=== PATIENT | male | born 1935 | race Caucasian/White ===

== ENCOUNTER 2016-12-31 11:40 | Inpatient (IN) | payer MEDICARE ==
[~2016-12-31] VITALS: Ht 175.3 cm; Wt 102.0 kg
--- NOTE | ~2016-12-31 | ECHO ---
Transthoracic Echocardiography Report (TTE) Demographics Patient Name ROD GIFFORD Date of Study 12/31/2016 Patient Number [id number] Visit Number [id number] Date of 1935 Room Number G6204 Gender Male Number Age 81 year(s) Referring Cocoaudrey Jiménez Fabiana Chicken Boner Jhony GERARD, Physician MD PERKINS Silva Physician Interpreting Dunia Tafoya Jewel Cupping Machine Operator Physician Supervising Ordering Dunia Tafoya MD/MLP Physician Nurse Stress Bus Inspector Conclusions Contractility Score Summary Hypokinesis of the infero-septal, the Apical septal and the Apical cap segments. Summary Technically difficult exam due to patient being intubated and having uncontrollable muscle jerking. 5 ml of Definity contrast was administered. The estimated left ventricular ejection fraction is 30%.Mild concentric left ventricular hypertrophy.Anterior wall is thinned and akinetic.Normal internal dimension. There is mild aortic regurgitation by color Doppler. MAC. Mild aortic sclerosis. Trivial MR,TR and MO. Procedure Type of Study TTE procedure:2D Echocardiogram, M-Mode, Doppler , Color Doppler, Contrast study. Procedure Date Date: 12/31/2016 Start: 07:52 PM Study Location: Inpatient Portable Technical Quality: Limited visualization Indications:Cardiac arrest. Appropriate Use Criteria: 9 Patient Status: STAT HR: 96 bpm BP: 97/64 mmHg Allergies - No known allergies. M-Mode/2D Measurements Cardiac Output: 3.78 l/min AO Root Dimension: 2.2 cm LA Dimension: 3 cm LA volume: 26 ml LVOT: 1.9 cm LVOT VTI: 13.9 cm LV Stroke volume: 39.39 ml Doppler Measurements AV Peak Velocity: 1.11 m/s MV Peak E-Wave: 0.97 m/s AV Peak Gradient: 4.93 mmHg MV Peak A-Wave: 0.47 m/s AV Mean Gradient: 4 mmHg MV E/A Ratio: 2.04 LVOT Peak Velocity: 0.68 m/s MV P1/2t: 56 msec PV Peak Velocity: 0.79 m/s PV Peak Gradient: 2.46 mmHg Findings Left Ventricle Mild concentric left ventricular hypertrophy.Anterior wall is thinned and akinetic.LVEF:30%.Normal LV internal dimension. Right Ventricle Right ventricle not well visualized. Left Atrium Normal left atrial size. Right Atrium Normal right atrial size. Mitral Valve Mild mitral annular calcification. Trivial mitral regurgitation by color Doppler. Aortic Valve The aortic valve is mildly sclerotic. There is mild aortic regurgitation by color Doppler. Tricuspid Valve Trivial tricuspid regurgitation by color Doppler. Pulmonic Valve Trivial pulmonic valve regurgitation by color Doppler. Pericardial Effusion No evidence of pericardial effusion. Pleural Effusion No evidence of pleural effusion. Contractility Score LV regional wall motion:(0-Non visualized 1-Normal 2-Hypokinesis 3-Akinesis 4-Dyskinesis 5-Aneurysm) Signature dtt: Lottie Duque dtd: 12/31/161951 Physician Self Edit
--- NOTE | ~2016-12-31 | DS ---
PATIENT'S NAME: ROD GIFFORD [facility] AGE: 81 Y [address] ROOM: [place] [address] LOCATION: CU ADMIT DATE: 12/31/2016 Discharge Summary DISCHARGE DATE: 01/01/2017 FAMILY PHYSICIAN: Tino Russo MD ATTENDING PHYSICIAN: Lottie Duque DISCHARGE DIAGNOSES: 1. The patient had collapsed and was resuscitated and transferred over by air ambulance from [place], I think. He was taken to the emergency room, and primary percutaneous coronary intervention of his circumflex system was done. Reason for collapse was ventricular fibrillation. 2. History of hypertension. 3. Type 2 diabetes. 4. Elevated lipids. 5. History of myocardial infarction 30 years ago. 6. Coronary artery bypass grafting. 7. Automatic implantable cardioverter-defibrillator placement. COURSE IN THE HOSPITAL: The patient was intubated and was taken directly to the collaborative teacher and primary PCI performed. The procedure was successful, and the patient was transferred back to the intensive care unit where he was maintained overnight. The patient's family, for a multiplicity of reasons including the patient's wishes, decided to withdraw the next morning, and all his ventilatory supports were withdrawn, and the patient the next morning on January 01. MD LILO BARROS/andrey /[id number] d: 01/10/17 1846 t: 01/22/17 1605, DISCHARGE SUMMARY
--- NOTE | ~2016-12-31 | CON ---
PATIENT'S NAME: ROD GIFFORD [facility] AGE: 81 Y [address] ROOM: G6204 [place], [place] [address] LOCATION: GICU ADMIT DATE: 12/31/2016 Consultation DISCHARGE DATE: FAMILY PHYSICIAN: Tino Russo MD ATTENDING PHYSICIAN: Lottie Duque HISTORY OF PRESENT ILLNESS: Mr. Gifford is a 81-year-old male patient who was at accident site of his grandson where he suddenly collapsed in front of his granddaughter and his son. CPR was immediately started. It appears as if it took about 20 minutes for the ambulance to get there and they continued the CPR and was taken to the [place] [facility]. He received three IV doses of epinephrine and his ICD fired a few times and eventually he went into regular sinus rhythm. His blood pressure was 90 systolic and he was air lifted to [place] at that time. When he got here, he was intubated and was on the ventilator. He had a fluid running intravenously and epinephrine to support his blood pressure. The patient was directly taken to the environmental laboratory technician and angiogram was performed, followed by intervention, and intra-aortic balloon pump before getting him started with cooling. The patient apparently has had an SC almost 30 years ago. It affected the bottom of his heart and had collateral circulation to that area. About 20 years back, he had bypass surgery x2. This is from the mostly. Lately, he has been short of breath, weak, and fatigued all the time. Has not had much of chest pains. He has been in functional class 3-4. He is not on any oxygen at home that I know of at this time. He does have a history of congestive heart failure. He had had syncopal spells and had "ablation" done in the [facility]. After that, he underwent AICD placement. There was no significant change noted after the AICD placement according to the family. He has however not been passing out, even though he comes close to passing out anymore. There is no history of ankle swelling. He does have a history of AFib, but has not been on Coumadin from what I can see. The patient has history of hypertension, type 2 diabetes, elevated cholesterol. He is not a smoker and there is no family history of premature coronary artery disease. MEDICATIONS: His list of medications currently are unknown. ALLERGIES: CURRENTLY UNKNOWN. PAST MEDICAL HISTORY: He has had two shoulders replaced and knee surgery. He had a tonsillectomy done as a child, but otherwise essentially mostly cardiac problems. PATIENT'S NAME: ROD GIFFORD [facility] AGE: 81 Y [address] ROOM: [place] [address] LOCATION: [facility] ADMIT DATE: 12/31/2016 Consultation DISCHARGE DATE: FAMILY PHYSICIAN: Tino Russo MD ATTENDING PHYSICIAN: Lottie Duque SOCIAL HISTORY: He is . He does not abuse alcohol. His appetite and weight have been stable. FAMILY HISTORY: No premature coronary artery disease. REVIEW OF SYSTEMS: 1. Never had TIA, seizures, or CVA. 2. There is no history of bleeding complications like hematemesis, hematochezia, melena, hematuria, or peptic ulcer disease. PHYSICAL EXAMINATION: GENERAL: The patient is sedated and he is intubated. LUNGS AND HEART: He appears to have bilaterally good breath sounds and heart sounds are distant. ABDOMEN: Soft. EXTREMITIES: Reveal no edema. CENTRAL NERVOUS SYSTEM: Not evaluated because of his sedation and muscle relaxation. ASSESSMENT: Sudden cardiac in the field. RECOMMENDATIONS: Proceed with PCI, followed by intra-aortic balloon pump for blood pressure support and sent him to the ICU for cooling protocol. MD LILO BARROS/andrey /[id number] d: 12/31/16 1507 t: 01/10/17 1234, CONSULTATION REPORT
--- NOTE | ~2016-12-31 | CATH ---
Cardiac Diagnostic + PCI Report Demographics Patient Name ИРИНА VELASCO Gender Male Date of 1935 Age 81 year(s) Patient Number [id number] Date of Study 12/31/2016 Visit Number [id number] Room Number G6[address] [place] [id number] Ht 175.26 cm Wt 101.7 kg Referring Dunia Primary Physician Physician Lottie BRADSHAW Performing Dunia Secondary Physician Physician Lottie BRADSHAW Diagnostic Dunia Assisting Physician Physician Lottie BRADSHAW Interventional Dunia Physician School Program Director Physician Lottie BRADSHAW Findings and Conclusions Diagnostic Findings and Conclusion severe 3 vessel disease JEFFERSON to LAD open svg graft to large diag open Diagnostic Recommendations PCI to circ IABP Interventional Findings and Conclusion LVEDP 18 Two bypass grafts open Possible infarct related to lesion stented IABP in place Procedure Description The patient was brought to the diagnostic cardiac catheterization-EP laboratory in the fasting, non-sedated state. Informed consent was obtained in the written and verbal form after the risks and benefits were explained. The patient had no further questions and agreed to proceed. The planned puncture-incision site(s) were shaved and prepped with ChloraPrep and draped in the usual sterile manner. Conscious sedation, supplemental oxygen, and pain control medications were delivered by a registered nurse under physician guidance. Surface ECG rhythm, blood pressure measurement, and pulse oximetry were monitored throughout the procedure. Arterial access. The access site was infiltrated with lidocaine. The vessel was entered with the Seldinger technique. A sheath was advanced into the vessel and used for catheter placement. Selective left coronary angiography. A catheter was advanced into the left coronary vessel ostium under Fluoroscopic guidance. Contrast was injected by hand. Images were obtained in multiple projections. Selective right coronary angiography. A catheter was advanced into the right coronary vessel ostium under fluoroscopic guidance. Contrast was injected by hand. Images were obtained in multiple projections. Selective JEFFERSON graft angiography. A catheter was advanced into the left internal mammary graft ostium under fluoroscopic guidance. Contrast was injected by hand. Images were obtained in multiple projections. Selective SVG angiography. A catheter was advanced into the graft proximal anastomosis under fluoroscopic guidance. Contrast was injected by hand. Images were obtained in multiple projection Root aortography. A catheter was positioned in the aortic root. Contrast was injected with a power injector. Images were obtained for visualization of graft location . Left heart catheterization. A catheter was advanced across the aortic valve Stent Placement: A guiding catheter was used to intubate the vessel. A 0.14 wire was used to cross the lesion. A Drug Eluting Stent was placed. IABP placement. The balloon catheter was advanced into the aorta and the tip was fluoroscopically positioned just distal to the left subclavian artery origin. The floppy guidewire was removed, and the central lumen of the catheter was flushed and attached to a pressure transducer. Balloon pumping was initiated, adjusting inflation and deflation times to maximize diastolic augmentation and minimize presystolic LV afterload. The intra-aortic balloon catheter was sutured in place at the end of the procedure. Arterial artery hemostasis. Hemostasis was achieved. The patient was transferred to a regular nursing floor via cart accompanied by a nurse. The patient left the laboratory in stable condition. Diagnostic Cath Status: Emergency Interventional Cath Status: Emergency Procedure Procedure Type Diagnostic procedure:Aortogram:, Aortic Root, Angiography:, Coronary PCI procedure:Drug Eluting Coronary Stent:, CFX Indications: Cardiogenic shock and Post Code. Angiographic Findings Dominance: Right Cardiac Arteries and Lesion Findings LMCA: Abnormal.luminal irregularities LAD: Abnormal.100% ostial Large diag inf branch 60% Lesion on Prox LAD: Ostial.100% stenosis . Lesion on 1st Diag: Proximal subsection.60% stenosis . LCx: Abnormal.prox circ 80% mid circ 99% Om 80% fiollowed by 90-99%, there are small ones and retrograde flow to RCA Lesion on Prox CX: Devices used - Promus Premier 3.0 x 12 Stent. 1 inflation(s) to a max pressure of: 18 katherine. - NC Emerge Balloon 3.0 x 8. 2 inflation(s) to a max pressure of: 25 katherine. - NC Emerge Balloon 3.25 x 8. 1 inflation(s) to a max pressure of: 25 katherine. Lesion on Mid CX: Devices used - Luge Wire .014 x 182. Number of passes: 1. - Emerge Balloon 2.5 x 15. 1 inflation(s) to a max pressure of: 15 katherine. - Promus Premier 3.0 x 20 Stent. 1 inflation(s) to a max pressure of: 15 katherine. Lesion on 1st Ob Lilian: Ostial.80% stenosis . Lesion on 1st Ob Lilian: Mid subsection.99% stenosis . Lesion on Prox CX: Proximal subsection.80% stenosis 12 mm length reduced to 0%. Pre procedure AMRITA I flow was noted. Post Procedure AMRITA III flow was present. The guidewire cross was successful.A poor run off was present.The lesion was diagnosed as a high risk lesion.Culprit lesion. Lesion on Mid CX: Mid subsection.99% stenosis 20 mm length reduced to 0%. Pre procedure AMRITA I flow was noted. Post Procedure AMRITA III flow was present. The guidewire cross was successful.A poor run off was present.The lesion was diagnosed as a high risk lesion.Culprit lesion. RCA: Abnormal.Mid 100% Lesion on Mid RCA: Mid subsection.100% stenosis . Cardiac Grafts - There is a Vein graft that originates at the Aorta Left and attaches to the 1st Diag. - There is a graft that originates at the JEFFERSON and attaches to the Mid LAD. Coronary Tree Procedure Data Procedure Date Date: 12/31/2016Start: 12:26 PMEnd: 02:07 PM Entry Locations - Retrograde Percutaneous access was performed through the Right Femoral artery (Primary location). A 7 Fr sheath was inserted. Hemostasis was successfully obtained using a pressurized flush bag which was connected to the sheath and it was sutured in place . Entry Comments: sheath exchanged for 45 cm 7fr. Closure Comments: suture by magnus. Procedure Medications Order and Administration + + + + + !Time !Medication !Dosage !Route ! + + + + + !12/31/2016 12:31 !Versed !1 mg !I.V. ! !PM ! ! ! ! + + + + + !12/31/2016 12:33 !Fentanyl !50 mcg !I.V. ! !PM ! ! ! ! + + + + + !12/31/2016 12:39 !Epinephrine !3.5 mcg/min !I.V. ! !PM ! ! ! ! + + + + + !12/31/2016 12:42 !Epinephrine !4 mcg/min !I.V. ! !PM ! ! ! ! + + + + + !12/31/2016 12:46 !Versed !2 mg !I.V. ! !PM ! ! ! ! + + + + + !12/31/2016 12:56 !unlisted medication !10 mg ! ! !PM ! ! ! ! + + + + + !12/31/2016 01:06 !Heparin (ACC_3) ![id number] units !I.V. bolus ! !PM ! ! ! ! + + + + + !12/31/2016 01:20 !Heparin (ACC_3) !2000 units !I.V. bolus ! !PM ! ! ! ! + + + + + !12/31/2016 01:23 !Integrilin (ACC_7) !18 mg !I.V. bolus ! !PM ! ! ! ! + + + + + !12/31/2016 01:26 !unlisted medication !40 mg ! ! !PM ! ! ! ! + + + + + !12/31/2016 01:27 !Versed !1 mg !I.V. drip ! !PM ! ! ! ! + + + + + !12/31/2016 01:33 !Integrilin (ACC_7) !18 mg !I.V. bolus ! !PM ! ! ! ! + + + + + !12/31/2016 01:37 !Epinephrine !3 mcg/min !I.V. drip ! !PM ! ! ! ! + + + + + !12/31/2016 01:51 !Integrilin (ACC_7) !2 mcg/kg/min!I.V. drip ! !PM ! ! ! ! + + + + + !12/31/2016 01:59 !Aspirin (ACC_4) !324 mg !P.O. ! !PM ! ! ! ! + + + + + !12/31/2016 02:00 !Brilinta (Ticagrelor) !180 mg !P.O. ! !PM !(ACC_20) ! ! ! + + + + + Devices Used - A6 Fr. BS JR 4 Diag. Catheterwas used for:Right coronary angiography. - A6 Fr. BS JL 4 Diag. Catheterwas used for:Left coronary angiography. - A6 Fr. BS JL 4 Diag. Catheterwas used for:Left coronary angiography. - A6 Fr. BS JR 4 Diag. Catheter. - A6 Fr. JJ 3DRC Diag. Catheterwas used for:JEFFERSON. - A6 Fr. BS Angled Pigtail Diag. Catheterwas used for:Left ventriculography. - A6 Fr. EBU 4 Guide Catheterwas used for:Circumflex Intervention. Contrast Material - Isovue [id number] ml Fluoroscopy Time: Diagnostic: 27:30 minutes. Total: 27:30 minutes. Fluoroscopy Dose: Diagnostic: 2942 mGy. Total: 2942 mGy. Estimated Blood Loss: 35 ml. IABP: IABP was Inserted after PCI has begun. Additional [facility] PCI Information PCI Indication:Immediate PCI for STEMI. Medical History Allergies - No known allergies. Risk Factors The patient risk factors include:prior CABG;orally-treated diabetes mellitus. Admission Data Admission Date: 12/31/2016 Admission Time: 12:03 PM Admit Source: Transfer acute care facility Insurance Payors: None. Clinical Evaluation Leading to Procedure - The patient's CAD presentation was assessed as: STEMI.The symptom onset was first noted on 12/31/2016 09:45 AM - The patient has been in a state of cardiogenic shock within the last 24 hrs. - The patient has had an episode of cardiac arrest within the last 24 hrs. [facility] Ventriculography Findings LVEDP 18 Hemodynamics Condition: Rest O2 Consumption: Estimated: 258.55Heart Rate: 83 bpm Pressures (mmHg) +-----+ + !Site !Pressure ! +-----+ + !LV !/12 ,13 ! +-----+ + !LV !88/9 ,9 ! +-----+ + !LV !95/14 ,17 ! +-----+ + !AO !/63 (76) ! +-----+ + !LV !98/10 ,15 ! +-----+ + !AO !98/62 (79) ! +-----+ + !AO !103/61 (80) ! +-----+ + Valve Gradients and Areas + +---------+---------+---------+ +---------+ + !Valve !Peak !Mean !Area !Index !Flow !Source ! + +---------+---------+---------+ +---------+ + !Aortic !3 !3 ! ! ! ! ! + +---------+---------+---------+ +---------+ + !Aortic !3 !3 ! ! ! ! ! + +---------+---------+---------+ +---------+ + Shunts Oxygen Values O2 Consumption 258.55 Discharge Data Discharge Date: 01/01/2017 Hospital Status: Inpatient Signatures dtt: Lottie Duque dtd: 12/31/16 1226 Physician Self Edit
[2016-12-31 15:37] LABS: BICARBONATE 20.5 mmol/L (18.0-23.0); PCO2 38 mmHg (35-45); PO2 127 mmHg (80-90)
[2016-12-31 16:28] LABS: BILIRUBIN URINE NEGATIVE (NEGATIVE); BLOOD URINE 250 /UL (NEGATIVE); COLOR URINE YELLOW (YELLOW); GLUCOSE URINE 50 mg/dL (NEGATIVE); KETONE URINE 5 mg/dL (NEGATIVE); LEUKOCYTES URINE NEGATIVE /UL (NEGATIVE); NITRITE URINE NEGATIVE (NEGATIVE); PROTEIN URINE 30 mg/dL (NEGATIVE); TURBIDITY URINE CLEAR (CLEAR); UROBILINOGEN URINE 1 mg/dL (NORMAL)
[2016-12-31 16:34] LABS: BASOPHIL % 0.2 %; EOSINOPHIL % 0.2 %; HEMATOCRIT 40.5 % (37.0-53.0); HEMOGLOBIN 12.7 g/dL (11.0-16.0); IMMATURE GRANULOCYTE # 0.1 K/uL (0.0-0.3); IMMATURE GRANULOCYTE % 0.7 %; LYMPHOCYTE # 0.6 K/uL (0.8-4.0); LYMPHOCYTE % 3.2 %; MCH 30.4 pg (27.0-34.0); MCHC 31.4 gm/dL (32.0-36.5); MCV 96.9 fl (83.0-98.0); MONOCYTE # 1.2 K/uL (0.0-1.0); MONOCYTE % 6.1 %; MPV 9.5 fl (9.4-12.4); NEUTROPHIL % 89.6 %; NRBC % 0 /100WBC (0-0.00); PLATELET COUNT 216 K/uL (150-450); RBC 4.18 M/uL (3.50-5.50); RDW-CV 14.1 % (11.9-14.6)
[2016-12-31 16:39] LABS: BACTERIA URINE MODERATE (NEGATIVE); EPITHELIAL URINE 0-2 #/HPF (NEGATIVE); WBC URINE 0-2 #/HPF (NEGATIVE)
[2016-12-31 16:53] LABS: ALBUMIN 3.2 gm/dL (3.5-5.0); ANION GAP 17.2 (10.0-19.0); CALCIUM 8.3 mg/dL (8.5-10.5); CREATININE 1.3 mg/dL (0.6-1.3); MAGNESIUM 2.3 mg/dL (1.3-2.6); PHOSPHORUS 4.2 mg/dL (2.5-4.9); POTASSIUM 5.2 mMol/L (3.7-5.1); TOTAL BILIRUBIN 0.6 mg/dL (0.0-1.5); TOTAL PROTEIN 6.7 g/dL (6.0-8.4)
[2016-12-31 16:58] LABS: INR - (THERAPEUTIC) 1.2 (0.9-1.1); PROTIME 13.3 SECONDS (9.6-11.1)
--- NOTE | 2016-12-31 17:11 | NUR ---
Pt transferred from [facility]. Intubated with 8.0 ETT at 28-29 Lip, after chest x-ray, pulled back to 26 teeth, secured with ETAD. Initial ETCO2 upon arrival 29. Placed in A/C 15, TV 500, P 5. Weaned Fio2 to 50%. Mini BAL collected. Pt breathing over set rate. Lung sounds diminished bases. Will continue to monitor
--- NOTE | 2016-12-31 17:19 | NUR ---
Significant Event: Patient arrived to ICU. Patient doesn't follow commands, does not withdraw in extremities X4, no spontaneous movement. Patient has Myoclonic jerking. Pupils are 3 and sluggish. SBP have been 70's-130's, MAP's mid 60's-80's, HR have shannon 60, patient is paced. IABP is in Left groin, 1:1, 100% Augmentation, IABP BP have been 70's-120's, MAP's 80-low 100's, Augmentation pressures have been 100-150's. Vent is in AC rate of 15, TV of 500, PEEP of 5, FiO2 of 50%. EtCo2 have been mid to upper 20's, RR 16-17. Lung Sounds are clear and diminished. OG is to LIS with 250ml out. Temp cronin is in place with 550ml out. Hypothermia pads are in place, we are rewarming patient to normothermic. Follow up:
--- NOTE | 2017-01-01 03:03 | NUR ---
FiO2 weaned to 40% on ventilator. EtCO2 27-29 this shift. BrSs slightly coarse t/o. Suctioned small amounts of thick, blood-tinged secretions from ETT. Tremors/jerking movements t/o shift, propofol to help decrease this. Continues on IABP. Continue per plan of care.
[2017-01-01 04:57] LABS: BICARBONATE 19.8 mmol/L (18.0-23.0); PCO2 32 mmHg (35-45); PO2 105 mmHg (80-90)
[2017-01-01 05:50] LABS: BASOPHIL % 0.1 %; HEMATOCRIT 37.1 % (37.0-53.0); HEMOGLOBIN 11.9 g/dL (11.0-16.0); IMMATURE GRANULOCYTE # 0.1 K/uL (0.0-0.3); IMMATURE GRANULOCYTE % 0.5 %; LYMPHOCYTE # 0.6 K/uL (0.8-4.0); LYMPHOCYTE % 3.6 %; MCH 30.7 pg (27.0-34.0); MCHC 32.1 gm/dL (32.0-36.5); MCV 95.6 fl (83.0-98.0); MONOCYTE # 1.2 K/uL (0.0-1.0); MONOCYTE % 6.7 %; MPV 9.6 fl (9.4-12.4); NEUTROPHIL # (ANC) 15.6 K/uL (1.4-9.0); NEUTROPHIL % 89.1 %; NRBC % 0 /100WBC (0-0.00); PLATELET COUNT 205 K/uL (150-450); RBC 3.88 M/uL (3.50-5.50); RDW-CV 14.3 % (11.9-14.6)
[2017-01-01 05:52] LABS: WBC 17.4 K/uL (4.0-11.0)
[2017-01-01 06:08] LABS: ANION GAP 16.2 (10.0-19.0); CALCIUM 8.3 mg/dL (8.5-10.5); CREATININE 1.3 mg/dL (0.6-1.3); MAGNESIUM 2.2 mg/dL (1.3-2.6); PHOSPHORUS 4.1 mg/dL (2.5-4.9)
[2017-01-01 06:10] LABS: POTASSIUM 4.2 mMol/L (3.7-5.1)
--- NOTE | 2017-01-01 06:51 | NUR ---
Significant Event: W/D X4. MYOCLONIC JERKING WORSENED OVERNIGHT. INCREASED PROPOFOL TO 50MCG/KG/MIN. DR. CALLEJAS INFORMED OF INCREASED JERKING. INCREASED KEPPRA DOSE. PACED RHYTHM, HR 60-100'S. LEVO OFF/ON OVERNIGHT. CURRENTLY AT 0.02MCG/KG/MIN. RARE BOWEL SOUNDS. PASSIGN FLATUS. NO BM. MARGINAL UOP. URINE BLOOD TINGED AT TIMES. BLOODY DRAINAGE NOTED FROM URETHRA. DR. CALLEJAS AWARE. GAVE 500ML NS BOLUS AND INCREASED IVF TO 125ML/HR. ECHO COMPLETE PER DR. GÓMEZ ORDER. SPOKE WITH FAMILY ABOUT PATIENT CONDITION. Follow up: CONTINUE, POSSIBLE WITHDRAW PER FAMILY REQUEST TODAY.
--- NOTE | 2017-01-01 12:21 | NUR ---
Pt extubated at 1218 to Room Air for comfort cares
== END 2017-01-01 12:47 | disposition expired | DRG 270 ==
LOC: GICU 11:41 → UNDOADMIN 11:41 → GICU 12:03
PROVIDERS: Anesthesiology Critical Care Medicine; ADMIT Internal Medicine Interventional Cardiology
PROC: 5A1935Z Respiratory Ventilation, Less than 24 Consecutive Hours (ICD-10-PCS; principal; 2016-12-31)
PROC: 4A023N7 Measurement of Cardiac Sampling and Pressure, Left Heart, Percutaneous Approach (ICD-10-PCS; principal; 2016-12-31)
PROC: 027035Z Dilation of Coronary Artery, One Artery with Two Drug-eluting Intraluminal Devices, Percutaneous Approach (ICD-10-PCS; principal; 2016-12-31)
PROC: B2111ZZ Fluoroscopy of Multiple Coronary Arteries using Low Osmolar Contrast (ICD-10-PCS; principal; 2016-12-31)
PROC: B3101ZZ Fluoroscopy of Thoracic Aorta using Low Osmolar Contrast (ICD-10-PCS; principal; 2016-12-31)
PROC: 5A02210 Assistance with Cardiac Output using Balloon Pump, Continuous (ICD-10-PCS; principal; 2016-12-31)
DX: I49.01 Ventricular fibrillation (principal); J96.00 Acute respiratory failure, unspecified whether with hypoxia or hypercapnia; G93.1 Anoxic brain damage, not elsewhere classified; I46.9 Cardiac arrest, cause unspecified; I25.10 Atherosclerotic heart disease of native coronary artery without angina pectoris; I25.2 Old myocardial infarction; Z95.1 Presence of aortocoronary bypass graft; Z95.810 Presence of automatic (implantable) cardiac defibrillator; I10 Essential (primary) hypertension; E11.9 Type 2 diabetes mellitus without complications; G25.3 Myoclonus
CPT/HCPCS: C1725; C1769; C1874; C1887; C9113; C9606; J0171; J1327; J1644; J1953; J2250; J2704; J3010; J7030; J7040; J7050; J7060; Q9957